=== PATIENT | male | born 1955 | race Caucasian/White ===

== ENCOUNTER 2016-11-24 23:32 | Emergency (ER) | payer OTHER ==
[~2016-11-24] VITALS: Ht 182.9 cm; Wt 95.3 kg
[~2016-11-24 23:32] MED LIST: ALBUTEROL0.09 MG/A1 INH; ALPRAZOLAM2 MG PO; ASPIR 8181 MG PO; CLINDAMYCIN HC300 MG PO; CLOPIDOGREL75 MG PO; COMBIVENT RESPI1 SPR INH; CRESTOR20 MG PO; HYDROCO/APAP TAB 10- PO; LISINOPRIL10 MG PO; LOPRESSOR 25MG25 MG PO; MULTIVITAMIN1 TAB PO; NASONEX0.05 MG/Ac INH; ZITHROMAX Z-PA250 M1 PO; [UNRECOGNIZED DRUG - OTHER] PO
--- NOTE | 2016-11-24 23:36 | ED GI/GU/ABDOMINAL COMPLAINT ---
History of Present Illness General Chief Complaint: Nausea, Vomiting, Diarrhea Stated Complaint: DIARRHEA,INDIGESTION Source: patient Exam Limitations: no limitations Vital Signs & Intake/Output Vital Signs & Intake/Output Vital Signs Date Time Temp Pulse Resp B/P Pulse O2 O2 Flow FiO2 Ox Delivery Rate 11/25 0146 97.1 90 18 125/64 100 Room Air 11/24 2339 96.9 92 18 126/66 99 Room Air ED Intake and Output 11/25 0000 11/24 1200 Intake Total Output Total Balance Patient 210 lb Weight Allergies Uncoded Allergies: MOLD AND DUST (08/24/15) Reconcile Medications Albuterol Sulfate (Albuterol Sulfate Hfa) 0.09 MG/Actuation NOA 2 PUFF INH Q4- 6 PRN PRN SHORTNESS OF BREATH 90 MCG PER PUFF Alprazolam 2 MG TAB 1 TAB PO TIDPRN PRN ANXIETY (Reported) Aspirin (Ecotrin) 81 MG ECT 1 TAB PO DAILY HEART HEALTH (Reported) Azithromycin (Zithromax Z-Praful) 250 MG CAP 1 DP PO AD . 2 the first day followed by 1 for days 2-5 CLOPIDOGREL BISULFATE (Clopidogrel) 75 MG TAB 1 TAB PO 1200 BLOOD THINNER ( Reported) IPRATROPIUM/ALBUTEROL SULFATE (Combivent Respimat Inhal Lane) 1 SPR SPR 1 PUFF INH QHS COPD (Reported) Lisinopril 10 MG TAB 1 TAB PO 1200 HTN (Reported) Metoprolol Tartrate (Lopressor) 25 MG TAB 1 TAB PO 1200 HTN (Reported) Mometasone Furoate (Nasonex) 0.05 MG/Actuation SPR 2 SPRAY INH DAILY NASAL CONGESTION Multivitamin (Multiple Vitamins) 1 TAB TAB 1 TAB PO 1200 VITAMIN SUPPORT ( Reported) Rosuvastatin Calcium (Crestor) 20 MG TAB 1 TAB PO 1200 HEART HEALTH (Reported ) Triage Note: PT BIBA C/O INDIGESTION AND DIARRHEA SINCE THIS AFTERNOON. PT STATES HE TOOK DULCOLAX WITHOUT RELIEF. Triage Nurses Notes Reviewed? yes Onset: Abrupt Duration: hour(s): Timing: recent history Quality/Severity: cramping Location: generalized abdomen Radiation: no radiation Prior Abdominal Problems: none Modifying Factors: Worsens With: defecating. Associated Symptoms: diarrhea HPI: 61-year-old gentleman presents with diarrhea. He notes that he had been constipated for many days. He took 3 Dulcolax tablets yesterday. While he was at a store he suddenly had an urge to defecate. He soiled his trousers. Since then he has had several episodes of loose stool. He has no nausea vomiting fever or abdominal pain chest pain or shortness of breath. Past History Travel History Traveled to [place] past 21 day No Medical History Any Pertinent Medical History? see below for history Cardiovascular: hypertension, hyperlipidemia, CARDIAC STENTS X 2 Respiratory: COPD, obstructive sleep apnea, ?COPD PER PT CPAP-NONCOMPLIANT Musculoskeletal: BACK SPASMS Psychiatric: anxiety, chronic pain disorder, substance abuse Surgical History Surgical History: non-contributory Psychosocial History What is your primary language Slovenian Family History Hx Contributory? No Review of Systems Review of Systems Constitutional: Reports: no symptoms. EENTM: Reports: no symptoms. Respiratory: Reports: no symptoms. Cardiovascular: Reports: no symptoms. GI: Reports: no symptoms. Genitourinary: Reports: no symptoms. Musculoskeletal: Reports: no symptoms. Skin: Reports: no symptoms. Neurological/Psychological: Reports: no symptoms. Hematologic/Endocrine: Reports: no symptoms. Immunologic/Allergic: Reports: no symptoms. All Other Systems: Reviewed and Negative Physical Exam Physical Exam General Appearance: well developed/nourished, no apparent distress, alert, awake , comfortable Head: atraumatic, normal appearance Eyes: Bilateral: normal appearance. Ears, Nose, Throat, Mouth: hearing grossly normal, dental injury, moist mucous membrane Neck: normal inspection, supple, full range of motion Respiratory: normal breath sounds, chest non-tender, no respiratory distress, quiet respiration, lungs clear Cardiovascular: regular rate/rhythm Gastrointestinal: normal bowel sounds, soft, non-tender Rectal: deferred, normal inspection, normal rectal tone, decreased rectal tone Back: normal inspection, normal range of motion, vertebral tenderness Extremities: normal range of motion Neurologic/Psych: no motor/sensory deficits, awake, alert, oriented x 3 Skin: intact, normal color, warm/dry Core Measures ACS in differential dx? No Severe Sepsis Present: No Septic Shock Present: No Progress Differential Diagnosis: bowel obstruction, cholecystitis, orchitis, prostatitis, perforated viscous, loose stool Plan of Care: Orders Procedure Date/time Status TROPONIN LEVEL 11/25 2335 Complete LIPASE 11/25 2335 Complete HEPATIC FUNCTION PANEL 11/25 2335 Complete DIRECT LDL 11/25 2335 Complete CHOLESTEROL 11/25 2335 Complete CBC WITHOUT DIFFERENTIAL 11/25 2335 Complete BASIC METABOLIC PANEL 11/25 2335 Complete AMYLASE 11/25 2335 Complete EKG 11/25 2335 Active Laboratory Tests 11/25/16 0001: Anion Gap 8, Estimated GFR > 60, BUN/Creatinine Ratio 14.4, Glucose 89, Calcium 9.7, Total Bilirubin 1.2, Direct Bilirubin 0.4, AST 31, ALT 43, Alkaline Phosphatase 76, Troponin I < 0.01, Total Protein 6.9, Albumin 4.2, Cholesterol 143, Amylase 71, Lipase 181, CBC w Diff NO MAN DIFF REQ, RBC 4.58 L, MCV 91.5, MCH 31.5 H, RDW 13.3, MPV 7.2 L, Gran % 54.0, Lymphocytes % 29.4, Monocytes % 9.8 H, Eosinophils % 6.4 H, Basophils % 0.4, Absolute Granulocytes 5.9, Absolute Lymphocytes 3.2, Absolute Monocytes 1.1 H, Absolute Eosinophils 0.7, Absolute Basophils 0, PUBS MCHC 34.5 11/24/168: Cholesterol Cancelled Radiology Impression: no acute abnormality, no fracture, no dislocation, no foreign body seen Initial ED EKG: normal axis, normal intervals, normal p-waves, normal QRS complex, normal sinus rhythm Departure Departure Disposition: HOME OR SELF CARE Condition: Stable Clinical Impression Primary Impression: Diarrhea Referrals: PATIENT HAS NO PRIMARY CARE DR Departure Forms: Customer Survey General Discharge Information Comments pt is well appearing in the ED with benign labs and clinical exam... He is otherwise well.
[2016-11-25 00:11] LABS: ABSOLUTE BASOPHIL COUNT 0 /CUMM (0.0-0.2); ABSOLUTE EOSINOPHIL COUNT 0.7 /CUMM (0.0-0.7); ABSOLUTE GRANULOCYTE CT 5.9 /CUMM (1.4-6.5); ABSOLUTE LYMPH COUNT 3.2 /CUMM (1.2-3.4); ABSOLUTE MONOCYTE COUNT 1.1 /CUMM (0.10-0.60); BASOPHIL % 0.4 % (0.0-2.0); EOSINOPHIL % 6.4 % (0-5); MEAN CORPUSCULAR HGB 31.5 PG (27.0-31.0); MEAN CORPUSCULAR HGB CONC 34.5 G/DL (33.0-37.0); MEAN CORPUSCULAR VOLUME 91.5 FL (80.0-94.0); MEAN PLATELET VOLUME 7.2 FL (7.4-10.4); PLATELET COUNT 246 /CUMM (130-400); RBC DISTRIBUTION WIDTH 13.3 % (11.5-14.5); RED BLOOD CELL CT 4.58 /CUMM (4.70-6.10); WHITE BLOOD CELL COUNT 10.9 /CUMM (4.8-10.8)
[2016-11-25 01:46] VITALS: BP 125/64
== END 2016-11-25 01:46 ==
LOC: ERH 23:32
PROVIDERS: Pediatrics
DX: R19.7 Diarrhea, unspecified (principal); I10 Essential (primary) hypertension
CPT/HCPCS: 93005; 93010